=== PATIENT | male | born 1985 | race Caucasian/White ===

== ENCOUNTER 2017-12-07 17:45 | Emergency (ER) | payer MEDICAID, SELFPAY ==
[2017-12-07 17:55] VITALS: BP 144/95; PULSE 105; RESP 10; TEMP 37.3; O2SAT 98
--- NOTE | 2017-12-07 17:57 | DI.CT_ITS ---
SYMPTOMS/DIAGNOSIS: PAIN S/P FALL LAST NIGHT CERVICAL SPINE CT: CT examination of the cervical spine was performed utilizing multislice acquisition and multiplanar reconstruction. There is a mid cervical kyphosis. There is moderate degenerative change of the mid cervical spine with endplate hypertrophic degenerative changes. There is no evidence of acute fracture or dislocation. Visualized lung apices are clear. Tracheolaryngeal structures appear intact. No cervical mass or adenopathy identified. CONCLUSION: No evidence of acute cervical injury. CRANIAL CT: A noncontrast cranial CT was performed. The ventricular system is normal in appearance. There is no evidence of an intracranial mass lesion. There is no evidence of a subdural or epidural hematoma. No focal areas of decreased attenuation are seen. CONCLUSION: Normal noncontrast cranial CT.
--- NOTE | 2017-12-07 18:02 | ED.GENADUL_ITS ---
Discharge Plan Disposition Patient Disposition: HOME Condition: Stable Discharge Details Chief Complaint: Nk/Back Pain Clinical Impression: Blunt head trauma, Cervical strain Primary Care Provider: Chase Israel ED Provider: Roque Reid Home Meds and New Rx's Prescriptions: Continue gabapentin 100 mg Capsule PO PRN PRNRF: 0 Discharge Instructions Instructions: Cervical Strain (ED) Discharge Data Discharge Physician: Roque Reid Medical Decision Making 32 yo male who denies any chronic medical problems, smoker and uses marijuana, comes in with neck, head and upper back pain. He states he fell last night down stairs but is vague and doesn't give any more details on the fall. He thinks he lost consciousness. He has had a headache, left lower lateral neck pain and pain over t1. No stepoffs or palpable deformities. HAs no chest pain or sob. HE states he has nerve pain in his middle fingers bialterally that is chronic and unchanged and has gabapentin for this. Will image to eval for tbi or fx. Has no findings to suggest entities such as central cord syndrome or other spinal cord injuries, normal sensation and motor exam ct head and c spine and upper t spine negative for acute findings, cleared c spine clinically and still no neuro deficits. Will d/c home, suspect contusion Differential Diagnosis fracture, sprain, strain HPI General Mode of arrival: ambulatory . Date/Time Provider Initiated Documentation: 12/07/17 17:54 . Limitations to Documentation: no limitations . Information obtained by: patient . History of Present Illness 32 year old M presents to the emergency department with the chief complaint of neck and upper back pain, described as moderate, with intensity rated at 5. Quality is described as stabbing, Patient reports no radiation. Patient started experiencing this day(s) (1) and it has been constant. No relieving factors improve symptom(s), No exacerbating factors reported . Patient did receive the following treatments prior to arrival, none Related Data Home Medications Medication Instructions Recorded Confirmed gabapentin mg PO PRN PRN 12/07/17 Allergies Allergy/AdvReac Type Severity Reaction Status Date / Time clonazepam [From Klonopin] AdvReac Intermediate blacks out Unverified 12/07/17 18:00 General Stated Complaint: Nk/Back Pain SILVANO: 3 Review of Systems Review of Systems All systems reviewed & are unremarkable except as noted in HPI and below Constitutional Denies chills, Denies fever(s) and Denies weakness Eyes Denies loss of vision ENT Denies change in voice Cardiovascular Denies chest pain and Denies dyspnea Respiratory Denies dyspnea Gastrointestinal Denies abdominal pain, Denies nausea and Denies vomiting Genitourinary Denies dysuria Musculoskeletal Denies joint swelling Integumentary/Breasts Denies rash Neurologic Denies loss of vision and Denies weakness Psychiatric Denies depression Endocrine Denies cold intolerance and Denies heat intolerance Allergic/Immunologic Reports urticaria PFSH Social History Smoking/Tobacco Use Status: Current every day Course Vital Signs Temperature 37.3 C 12/07/17 17:55 Pulse 105 H 12/07/17 17:55 Respiratory Rate 10 L 12/07/17 17:55 Blood Pressure 144/95 H 12/07/17 17:55 Pulse Oximetry 98 12/07/17 17:55 Temperature 37.3 C 12/07/17 17:55 Temperature Source Skin 12/07/17 17:55 Pulse 105 H 12/07/17 17:55 Respiratory Rate 10 L 12/07/17 17:55 Blood Pressure 144/95 H 12/07/17 17:55 Blood Pressure Position Sitting 12/07/17 17:55 Pulse Oximetry 98 12/07/17 17:55 Oxygen Delivery Method Room Air 12/07/17 17:55 Oxygen Flow Rate 0 12/07/17 17:55
[2017-12-07] MEDS: Ibuprofen 800 MG TAB (18:23)
[2017-12-07] MEDS: Gabapentin 300 MG CAP PO (18:23)
[2017-12-07] MEDS: Nicotine 21 MG/24 HR PATCH (18:24)
--- NOTE | 2017-12-07 18:55 | DI.VRAD_ITS ---
EXAM: CT Head Without Intravenous Contrast CLINICAL HISTORY: 32 years old, male; Injury or trauma; Fall; Initial encounter; Blunt trauma (contusions or hematomas); With loss of consciousness; Not specified; Injury date: 12/06/17; Patient HX: S/P fall with loss of consciousness TECHNIQUE: Axial computed tomography images of the head/brain without intravenous contrast. Coronal and sagittal reformatted images were created and reviewed. COMPARISON: No relevant prior studies available. FINDINGS: Brain: No focal pathology. No hemorrhage. No significant white matter disease. No edema. Ventricles: No focal pathology. No ventriculomegaly. Bones/joints: Minimal offset of the right nasal bone, may reflect a minor age-indeterminate fracture. No acute calvarial pathology. Soft tissues: Unremarkable. Sinuses: No significant mucosal thickening. Mastoid air cells: Unremarkable as visualized. No mastoid effusion. IMPRESSION: 1. No acute intracranial findings. 2. Minimal offset of the right nasal bone, may reflect a minor age-indeterminate fracture. EXAM: CT Cervical Spine Without Intravenous Contrast CLINICAL HISTORY: 32 years old, male; Injury or trauma; Fall; Initial encounter; Blunt trauma (contusions or hematomas); With loss of consciousness; Not specified; Injury date: 12/06/17; Patient HX: S/P fall with loss of consciousness TECHNIQUE: Axial computed tomography images of the cervical spine without intravenous contrast. Coronal and sagittal reformatted images were created and reviewed. COMPARISON: No relevant prior studies available. FINDINGS: Vertebrae: Reversal of the normal cervical lordosis. No fracture. Discs/spinal canal/neural foramina: Mild mid cervical degenerative changes. No fracture or subluxation. Disc space narrowing, C5-C6. Soft tissues: Unremarkable. Lung apices: Unremarkable as visualized. IMPRESSION: No cervical spine fracture. Dictated and Authenticated by: Lizz Polanco MD. Ordering:LYNETTE MOROCHO MD
[2017-12-07 19:26] VITALS: PULSE 82; RESP 18; TEMP 37.2; O2SAT 97
== END 2017-12-07 19:27 | disposition home or self-care (01) ==
LOC: ER 19:52
PROVIDERS: Emergency Provider Emergency Medicine; PCP Specialist/Technologist Athletic Trainer
DX: S09.90XA Unspecified injury of head, initial encounter (principal); S13.4XXA Sprain of ligaments of cervical spine, initial encounter; W10.8XXA Fall (on) (from) other stairs and steps, initial encounter
CPT/HCPCS: 99284; 70450; 72125; 99281; L0172